=== PATIENT | female | born 1945 | race Caucasian/White ===

== ENCOUNTER 2021-02-08 02:49 | Outpatient (RCR) | payer MEDICARE, BC, SELFPAY ==
[2021-02-08] VITALS (7 sets, daily range): BP systolic 154–179; BP diastolic 66–77; PULSE 59–84; RESP 16–18; TEMP 36.4–36.8; O2SAT 97–100
[2021-02-08] MEDS: Acetaminophen 325 MG TAB 650 MG PO (10:06)
[2021-02-08] MEDS: methylPREDNISolone SUCC 125 MG VIAL IV (10:07)
[2021-02-08] MEDS: diphenhydrAMINE 50 MG/ML VIAL 25 MG IV (10:07)
[2021-02-08] MEDS: Normal Saline Flush 10 ML SYR IVP (10:07)
[2021-02-08 10:58] LABS: Abs Immature Grans 0.04 10^3/uL (0.0-0.06); Absolute Lymphocyte Count 0.39 10^3/uL (1.2-3.4); Absolute Monocyte Count 0.31 10^3/uL (0.1-0.8); HGB 9.5 g/dL (11.2-15.7); Immature Grans % 0.4; Lymphocytes % 4.2; MCH 27.9 pg (27.0-33.0); MCHC 31.7 % (32.0-36.0); MCV 88.2 fL (80-95); MPV 11.5 fL (8.0-11.0); Monocytes % 3.4; Nucleated RBC 0 %; Platelet Count 134 10^3/uL (130-400); RDW 16.4 % (11.7-14.6); RDW-SD 52.8 fL; WBC 9.24 10^3/uL (4.4-10.8)
[2021-02-08 11:06] LABS: Anion Gap 9.7 mmol/L (3-11); BUN 60 mg/dL (7-18); CO2 27.3 mmol/L (21.0-32.0); CREATININE 2.9 mg/dL (0.55-1.02); Chloride 105 mmol/L (98-107); Estimated GFR 15.74 (mL/min/1.73m2); Glucose 119 mg/dL (74-106); Potassium 4.1 mmol/L (3.5-5.1); Sodium 142 mmol/L (136-145)
== END 2021-02-25 23:59 | disposition home or self-care (01) ==
LOC: INF 02:49
PROVIDERS: Internal Medicine; Visit Provider Internal Medicine
DX: M31.30 Wegener's granulomatosis without renal involvement (principal)
CPT/HCPCS: 36415; 80048; 96365; 96366; 96374; 96375; 96413; 96415; 85025; J1200; J2930; Q5119

== ENCOUNTER 2022-02-08 02:15 | Outpatient (RCR) | payer MEDICARE, BC, SELFPAY ==
[2022-02-08 09:50] VITALS: BP 155/75; PULSE 73; RESP 18; TEMP 36.2; O2SAT 97
[2022-02-08] MEDS: Normal Saline Flush 10 ML SYR IVP (09:51)
[2022-02-08] MEDS: methylPREDNISolone SUCC 125 MG VIAL IVP (09:52)
[2022-02-08] MEDS: diphenhydrAMINE 50 MG/ML VIAL 25 MG IVP (09:52)
[2022-02-08] MEDS: Acetaminophen 325 MG TAB 650 MG PO (09:52)
[2022-02-08 10:39] VITALS: BP 123/70; PULSE 77; RESP 18; TEMP 36.2; O2SAT 99
[2022-02-08 11:10] VITALS: BP 122/71; PULSE 55; RESP 18; TEMP 36.3; O2SAT 99
[2022-02-08 11:38] VITALS: BP 138/79; PULSE 56; RESP 18; TEMP 36; O2SAT 99
[2022-02-08 12:10] VITALS: BP 138/68; PULSE 60; RESP 18; TEMP 36.1; O2SAT 99
== END 2022-02-25 23:59 | disposition home or self-care (01) ==
LOC: INF 02:15
PROVIDERS: Visit Provider Nurse Practitioner Acute Care
DX: I77.6 Arteritis, unspecified (principal); R76.8 Other specified abnormal immunological findings in serum
CPT/HCPCS: 96365; 96366; 96374; J1200; J2930; Q5119

== ENCOUNTER 2023-04-26 02:55 | Outpatient (RCR) | payer MEDICARE, BC, SELFPAY ==
[2023-04-26] VITALS (9 sets, daily range): BP systolic 151–189; BP diastolic 54–79; PULSE 52–66; RESP 17–18; TEMP 36.1–36.4; O2SAT 98–99
[2023-04-26] MEDS: Acetaminophen 325 MG TAB (10:16)
[2023-04-26] MEDS: diphenhydrAMINE 50 MG/ML VIAL 25 MG IV (10:17)
[2023-04-26] MEDS: methylPREDNISolone SUCC 125 MG VIAL IV (10:18)
[2023-04-26] MEDS: riTUXimab-PVVR 1,000 MG in Normal Saline 150 ML 62.5 MG IVPB (10:18)
== END 2023-04-27 23:59 | disposition home or self-care (01) ==
LOC: INF 02:55
PROVIDERS: Visit Provider Family Medicine
DX: I77.6 Arteritis, unspecified (principal); R76.8 Other specified abnormal immunological findings in serum; M31.30 Wegener's granulomatosis without renal involvement
CPT/HCPCS: 96365; 96366; J1200; J2930; Q5119